=== PATIENT | female | born 1960 | race Caucasian/White ===

== ENCOUNTER 2019-05-19 00:57 | Day surgery (SDC) | payer OTHER ==
[~2019-05-19] VITALS: Ht 165.1 cm; Wt 84.1 kg
[2019-05-19] MEDS ORDERED: MORPHINE SULFATE 4 MG/ML, 1ML ONE ×2 (01:36→02:45)
[2019-05-19] MEDS ORDERED: ONDANSETRON 2MG/ML, 2ML ONE ×3 (01:36→07:12)
[2019-05-19] MEDS: MORPHINE SULFATE 4 MG/ML, 1ML IVPush PRN ×2 (01:46→02:55)
--- NOTE | 2019-05-19 01:56 | NUR ---
SUDHIR BURRIS AT BEDSIDE FOR US. IV STARTED AND PT MEDICATED FOR PAIN PER EMAR.
[2019-05-19] MEDS ORDERED: ONDANSETRON 2MG/ML, 2ML IVPush ONE (02:00)
--- NOTE | 2019-05-19 02:10 | NUR ---
CT PENDING CREATINE.
[2019-05-19 02:15] LABS: BASOPHILS # (AUTO) 0.06 x10^3/uL (0-0.1); BASOPHILS % (AUTO) 1 % (0-1); EOSINOPHILS # (AUTO) 0.08 x10^3/uL (0-0.4); EOSINOPHILS % (AUTO) 1 % (1-7); LYMPHOCYTES # (AUTO) 2.35 x10^3/uL (1-3.4); LYMPHOCYTES % (AUTO) 30 % (22-44); MD NO; MEAN CORPUSCULAR HEMOGLOBIN 30.8 pg (27.0-34.8); MEAN CORPUSCULAR HGB CONC 33.2 g/dL (32.4-35.8); MEAN CORPUSCULAR VOLUME 92.8 fL (80-100); MEAN PLATELET VOLUME 7.6 fL (7.4-10.4); MONOCYTES % (AUTO) 8 % (2-9); NEUTROPHILS # (AUTO) 4.78 x10^3/uL (1.8-6.8); NEUTROPHILS % (AUTO) 61 % (42-75); PLATELET COUNT 274 x10^3/uL (130-400); RED BLOOD COUNT 4.84 x10^6/uL (3.82-5.3); RED CELL DISTRIBUTION WIDTH 13.1 % (9.6-15.2)
[2019-05-19 02:24] LABS: ALANINE AMINOTRANSFERASE 53 U/L (12-78); ALBUMIN 4.1 g/dL (3.4-5.0); ANION GAP 9 mmol/L (5-15); CALCIUM 9.6 mg/dL (8.5-10.1); CHLORIDE 105 mmol/L (98-107); CREATININE 0.91 mg/dL (0.55-1.02)
[2019-05-19 02:29] LABS: ALKALINE PHOSPHATASE 97 U/L (45-117); BILIRUBIN,TOTAL 0.5 mg/dL (0.2-1.0); TOTAL PROTEIN 7.5 g/dL (6.4-8.2); TROPONIN I < 0.015 ng/mL (0.000-0.045)
--- NOTE | 2019-05-19 02:30 | NUR ---
PT AMBULATED TO RESTROOM WITH STEADY GAIT.
[2019-05-19 02:52] LABS: CULTURE INDICATED? YES; MICROSCOPIC INDICATED
[2019-05-19] MEDS ORDERED: OMNIPAQUE 350 MG/ML, 100ML BOTTLE ONE (02:58)
[2019-05-19] MEDS ORDERED: SODIUM CHLORIDE 0.9% 1,000 ML IV ONE (03:47)
[2019-05-19] MEDS ORDERED: HYDROmorphone 1 MG/ML, 1ML INJ ONE (03:57)
[2019-05-19] MEDS ORDERED: HYDROmorphone 1 MG/ML, 1ML INJ IVPush PRN (04:00)
[2019-05-19] MEDS ORDERED: ONDANSETRON 2MG/ML, 2ML IVPush PRN (04:00)
[2019-05-19] MEDS ORDERED: CEFOTETAN PMX 2GM/50ML 50 ML IV ONE (04:00)
--- NOTE | 2019-05-19 04:19 | NUR ---
PT MAYANK NOTIFIED PT IS TO BE ADMITTED FOR SURGERY. MAYANK BUCK
--- NOTE | 2019-05-19 05:34 | NUR ---
TASK RN: REPORT TO [facility] ON FLOOR. PT PREPARED FOR TRANSPORT
[2019-05-19 06:36] VITALS: BP 159/74
[2019-05-19] MEDS ORDERED: EPINEPHRINE 1 MG/ML, 1ML ONE (06:47)
[2019-05-19] MEDS ORDERED: BUPIVACAINE/PF 0.25% ONE (06:47)
[2019-05-19] MEDS ORDERED: MIDAZOLAM 1 MG/ML, 2ML ONE (07:07)
[2019-05-19] MEDS ORDERED: FENTANYL PF 100 MCG/2ML ONE (07:07)
[2019-05-19] MEDS ORDERED: ROCURONIUM 10MG/ML,5ML ONE (07:12)
[2019-05-19] MEDS ORDERED: GLYCOPYRROLATE 0.2MG/1ML, 5ML ONE (07:12)
[2019-05-19] MEDS ORDERED: NEOSTIGMINE 1 MG/ML, 10ML ONE (07:12)
[2019-05-19] MEDS ORDERED: DEXAMETHASONE 4 MG/ML, 1ML ONE (07:12)
[2019-05-19] MEDS ORDERED: PROPOFOL 10 MG/ML, 20ML ONE (07:12)
[2019-05-19] MEDS ORDERED: SUCCINYLCHOLINE 20 MG/ML, 10ML ONE (07:12)
[2019-05-19] MEDS ORDERED: CEFAZOLIN 1,000 MG ONE (07:12)
[2019-05-19] MEDS ORDERED: ONDANSETRON 2MG/ML, 2ML IV PRN (07:30)
[2019-05-19] MEDS ORDERED: HYDROmorphone 2 MG/ML, 1ML IVPush PRN (07:30)
[2019-05-19] MEDS ORDERED: ACETAMINOPHEN 325 MG TABLET PO PRN (07:30)
[2019-05-19] MEDS ORDERED: LABETALOL 5MG/ML, 20ML IV PRN (07:30)
[2019-05-19] MEDS ORDERED: FENTANYL PF 100 MCG/2ML IV PRN (07:30)
[2019-05-19] MEDS ORDERED: EPHEDRINE 50 MG/ML, 1ML IVPush PRN (07:30)
[2019-05-19] MEDS ORDERED: MEPERIDINE/PF 25MG/ML,1ML IVPush PRN (07:30)
[2019-05-19] MEDS ORDERED: OXYcodone 5 MG/5 ML ORAL.SOL UDC PO PRN (07:30)
[2019-05-19] MEDS ORDERED: PROMETHAZINE 25 MG/ML, 1ML IV PRN (07:30)
[2019-05-19] MEDS ORDERED: hydrALAzine 20 MG/ML, 1ML IV PRN (07:30)
[2019-05-19] MEDS ORDERED: LIDOCAINE-MPF 2% ,5ML ONE (07:34)
[2019-05-19] MEDS ORDERED: KETOROLAC 30 MG/1 ML ONE (07:34)
[2019-05-19 09:42] VITALS: BP 118/67
[2019-05-19] MEDS ORDERED: ATOR20TA86 PO (09:52)
[2019-05-19 12:03] VITALS: BP 116/73
[2019-05-19] MEDS ORDERED: HYDR-3240 PO (15:37)
== END 2019-05-19 15:44 | disposition home or self-care (01) ==
LOC: ED 04:13 → SDC 04:13 → EDIP 04:30 → UNDOADMIN 04:30 → 4EST 06:04 → EDIP 06:04 → EDSTATUS 10:26 → 4EST 15:36 → DCLOUNGE 15:36 → SDC 15:44 → UNDODISIN 15:44
PROVIDERS: ATTEND Student in an Organized Health Care Education/Training Program
DX: K35.80 Unspecified acute appendicitis (principal); E78.5 Hyperlipidemia, unspecified; Z87.891 Personal history of nicotine dependence; Z88.2 Allergy status to sulfonamides; Z90.710 Acquired absence of both cervix and uterus; Z98.51 Tubal ligation status
CPT/HCPCS: 36415; 44970; 71045; 74177; 80053; 81001; 83605; 83690; 84484; 85025; 87086; 88304; 93005; 96365; 96375; 99285; J0171; J0330; J0690; J1100; J1170; J1885; J2250; J2270; J2405; J2704; J2710; J3010; J3490; J7030; Q9967